=== PATIENT | male | born 1955 | race Asian ===

== ENCOUNTER 2017-02-19 07:55 | Emergency (ER) | payer MEDICAID ==
[2017-02-19 08:03] VITALS: RESP 18
--- NOTE | 2017-02-19 08:12 | EDPHY ---
H & P Stated Complaint: cough/dyspnea/ congestion Time Seen by Provider: 02/19/17 08:12 - Personal History Current Tetanus/Diphtheria Vaccine: Yes Tetanus Vaccine Date: 2011 - Medical/Surgical History Hx Asthma: No Hx Chronic Respiratory Disease: No Hx Diabetes: Yes Hx Cardiac Disease: Yes Hx Renal Disease: No Hx Cirrhosis: No Hx Alcoholism: No Hx HIV/AIDS: No Hx Splenectomy or Spleen Trauma: No Other PMH: heart surg - Social History Smoking Status: Current every day smoker Constitutional: Initial Vital Signs Temperature (C) 36.9 C 02/19/17 08:00 Heart Rate 85 02/19/17 08:00 Respiratory Rate 18 02/19/17 08:00 Blood Pressure 163/94 H 02/19/17 08:00 O2 Sat (%) 94 02/19/17 08:00 O2 Delivery Mode Room Air Allergies/Adverse Reactions: No Known Allergies Allergy (Verified 02/19/17 07:59) Home Medications: Medication Instructions Recorded Aspirin [Aspirin 81mg] 81 mg PO DAILY 11/24/11 Atorvastatin Calcium [Lipitor 40 40 mg PO DAILY 11/24/11 mg (RX)] Docusate Sodium [Colace] 100 mg PO BID PRN 11/24/11 Isosorbide Mononitrate [Imdur 30 30 mg PO DAILY 11/24/11 mg (*)] Metoprolol Tartrate [Lopressor 50 50 mg PO BID 11/24/11 mg] Fluconazole [Diflucan] 100 mg PO DAILY #10 tablet 04/10/12 Insulin Dose Unk 04/10/12 Janumet Dose Unk 04/10/12 Albuterol [Proventil Inhaler] 1 - 2 puffs IH Q4 #1 mdi 02/19/17 HYDROcodone/HOMATROPINE HYCODA 1 tsp PO Q4-6PRN PRN #120 ml 02/19/17 [Hycodan Syrup (RX)] levOFLOXACIN [levAQUIN 750 MG (RX)] 750 mg PO DAILY #10 tab 02/19/17 Medical Decision Making - Diagnostics Imaging Results: Imaging Impressions Chest X-Ray 02/19/17 08:19 Impression: Findings consistent with airways disease noted. Imaging: I viewed and interpreted images myself ED Course/Re-evaluation: CHIEF COMPLAINT: Cough and associated pain HISTORY OF PRESENT ILLNESS: This patient is a 61 year old male arriving with his complaining of pain in his right chest and persistent cough over the last five days. He reports associated pain in the right side of his chest, which he states he feels is likely muscular from prolonged coughing. He denies fever, nausea, vomiting, or other associated symptoms. He denies recent trauma or surgical history. REVIEW OF SYSTEMS: A 10 point review of systems was performed and is negative with the exception of the elements mentioned in the history of present illness. PHYSICAL EXAM: HR, BP, O2 Sat, RR. Temp noted General Appearance: Alert, well hydrated, appropriate, and non-toxic appearing. Head: Atraumatic without scalp tenderness or obvious injury Eyes: Pupils equal, round, reactive to light and accommodation, EOMI, no trauma , no injection. Ears: Clear bilaterally, no perforation, normal landmarks Nose: Atraumatic, no rhinorrhea, clear. Throat: There is no erythema or exudates, no lesions, normal tonsils, mucus membranes moist. Neck: Supple, nontender, no lymphadenopathy. Respiratory: Decreased breath sounds and rhonchi in the right base. No retractions, no distress, no wheezes, and no accessory muscle use. Cardiovascular: Regular rate and rhythm, no murmurs, rubs, or gallops. Good capillary refill all extremities. Gastrointestinal: Abdomen is soft, nontender, non-distended, no masses, no rebound, no guarding, no peritoneal signs. Musculoskeletal: Normal active ROM of all extremities, atraumatic. Neurological: Alert, appropriate, and interactive. Nonfocal neuro exam. Skin: No rashes, good turgor, no nodules on palpation. Past medical history: Diabetes, hyperlipidemia Past surgical history: Heart surgery 2012 graft Family history: Noncontributory. Social history: at bedside. DIFFERENTIAL DIAGNOSIS: The differential diagnosis for the patient's fever included but was not limited to bronchitis, pneumonia, and viral syndrome. MEDICAL DECISION MAKING: This patient is a 61 year old male presenting with a five day history of cough and associated right-sided thoracic pain. Physical exam reveals decreased breath sounds and rhonchi in the right base, but is otherwise unremarkable. Plan for labs including CBC, CHEM, Bilirubin, PTPTT, and blood cultures, and chest x-ray. Chest x-ray reveals findings consistent with bronchitis. 10:11 Reassessed patient. Discussed x-ray results. Plan to discharge home in good condition with prescriptions for Levaquin to treat infection and Hycodan syrup and Albuterol inhaler to control cough. Return precautions discussed. The patient and his are comfortable with this plan. - Data Points Laboratory Results: Laboratory Results 02/19/17 08:25 02/19/17 08:25 02/19/17 02/19/17 02/19/17 08:25 08:25 08:25 WBC 9.34 10^3/uL 10^3/uL (3.80-9.50) RBC 4.79 10^6/uL 10^6/uL (4.40-6.38) Hgb 15.0 g/dL g/dL (13.7-17.5) Hct 42.5 % % (40.0-51.0) MCV 88.7 fL fL (81.5-99.8) MCH 31.3 pg pg (27.9-34.1) MCHC 35.3 g/dL g/dL (32.4-36.7) RDW 12.1 % % (11.5-15.2) Plt Count 174 10^3/uL 10^3/uL (150-400) MPV 9.8 fL fL (8.7-11.7) Neut % (Auto) 70.8 % % (39.3-74.2) Lymph % (Auto) 19.9 % % (15.0-45.0) [place] % (Auto) 6.4 % % (4.5-13.0) Eos % (Auto) 2.4 % % (0.6-7.6) Baso % (Auto) 0.3 % % (0.3-1.7) Nucleat RBC Rel Count 0.0 % % (0.0-0.2) Absolute Neuts (auto) 6.61 10^3/uL H 10^3/uL (1.70-6.50) Absolute Lymphs (auto) 1.86 10^3/uL 10^3/uL (1.00-3.00) Absolute Monos (auto) 0.60 10^3/uL 10^3/uL (0.30-0.80) Absolute Eos (auto) 0.22 10^3/uL 10^3/uL (0.03-0.40) Absolute Basos (auto) 0.03 10^3/uL 10^3/uL (0.02-0.10) Absolute Nucleated RBC 0.00 10^3/uL 10^3/uL (0-0.01) Immature Gran % 0.2 % % (0.0-1.1) Immature Gran # 0.02 10^3/uL 10^3/uL (0.00-0.10) PT 12.0 SEC SEC (12.0-15.0) INR 0.90 (0.83-1.16) APTT 26.0 SEC SEC (23.0-38.0) VBG Lactic Acid Sodium 133 mEq/L L mEq/L (134-144) Potassium 4.4 mEq/L mEq/L (3.5-5.2) Chloride 102 mEq/L mEq/L (97-110) Carbon Dioxide 20 mEq/l L mEq/l (22-31) Anion Gap 11 mEq/L mEq/L (8-16) BUN 15 mg/dL mg/dL (7-23) Creatinine 1.0 mg/dL mg/dL (0.7-1.3) Estimated GFR > 60 Glucose 322 mg/dL H mg/dL (70-100) Calcium 9.0 mg/dL mg/dL (8.5-10.4) Total Bilirubin 0.7 mg/dL mg/dL (0.1-1.4) 02/19/17 08:25 WBC RBC Hgb Hct MCV MCH MCHC RDW Plt Count MPV Neut % (Auto) Lymph % (Auto) [place] % (Auto) Eos % (Auto) Baso % (Auto) Nucleat RBC Rel Count Absolute Neuts (auto) Absolute Lymphs (auto) Absolute Monos (auto) Absolute Eos (auto) Absolute Basos (auto) Absolute Nucleated RBC Immature Gran % Immature Gran # PT INR APTT VBG Lactic Acid 1.4 mmol/L mmol/L (0.7-2.1) Sodium Potassium Chloride Carbon Dioxide Anion Gap BUN Creatinine Estimated GFR Glucose Calcium Total Bilirubin Departure - Departure Disposition: Home, Routine, Self-Care Clinical Impression: Acute bronchitis Qualifiers: Bronchitis organism: other organism Qualified Code(s): J20.8 - Acute bronchitis due to other specified organisms Condition: Good Instructions: Acute Bronchitis (ED) Additional Instructions: 1. Take your Levaquin as prescribed for the next 10 days. It is important that you finish the entire course of antibiotics. 2. Take your Hycodan syrup and use your albuterol inhaler as prescribed as needed for cough. 3. Follow up with your primary care physician for symptoms unresolved in the next week. 4. Return to the Emergency Department for difficulty breathing, fever, chills, nausea, or other worsening of condition. Referrals: NONE *PRIMARY CARE P,. [Primary Care Provider] - As per Instructions Blair Lay MD [Medical Doctor] - As per Instructions Prescriptions: Albuterol [Proventil Inhaler] 1 - 2 puffs IH Q4 #1 mdi HYDROcodone/HOMATROPINE HYCODA [Hycodan Syrup (RX)] 1 tsp PO Q4-6PRN PRN #120 ml PRN Reason: Cough, Moderate levOFLOXACIN [levAQUIN 750 MG (RX)] 750 mg PO DAILY #10 tab Report Scribed for: Deon Muniz Report Scribed by: Stephany Kaur Date of Report: 02/19/17 Time of Report: 10:07
[2017-02-19 08:40] LABS: % IMMATURE GRANULYOCYTES 0.2 % (0.0-1.1); ABSOLUTE IMMATURE GRANULOCYTES 0.02 10^3/uL (0.00-0.10); ADD DIFF? NO; ADD MORPH? NO; ADD SCAN? NO; ATYPICAL LYMPHOCYTE FLAG 20 (0-99); FRAGMENT RBC FLAG 0 (0-99); HEMATOCRIT 42.5 % (40.0-51.0); LEFT SHIFT FLG 0 (0-99); LIPEMIA HEMOLYSIS FLAG 90 (0-99); MEAN CELL HEMOGLOBIN 31.3 pg (27.9-34.1); MEAN CELL HEMOGLOBIN CONCENTR. 35.3 g/dL (32.4-36.7); MEAN CELL VOLUME 88.7 fL (81.5-99.8); MEAN PLATELET VOLUME 9.8 fL (8.7-11.7); PLATELET CLUMPS FLAG 0 (0-99); PLATELET COUNT 174 10^3/uL (150-400); RED BLOOD CELL COUNT 4.79 10^6/uL (4.40-6.38); RED CELL DISTRIBUTION WIDTH 12.1 % (11.5-15.2)
[2017-02-19 08:49] LABS: INR 0.9 (0.83-1.16)
[2017-02-19 08:52] LABS: BILIRUBIN,TOTAL 0.7 mg/dL (0.1-1.4); CARBON DIOXIDE 20 mEq/l (22-31); CHLORIDE 102 mEq/L (97-110); GLOMERULAR FILTRATION RATE > 60; GLUCOSE 322 mg/dL (70-100); SODIUM 133 mEq/L (134-144)
[2017-02-19 09:08] LABS: ANION GAP 11 mEq/L (8-16); POTASSIUM 4.4 mEq/L (3.5-5.2)
[2017-02-19 10:40] VITALS: BP 161/92; PULSE 93; TEMP 98.1; O2SAT 95
== END 2017-02-19 10:39 | disposition home or self-care (01) ==
DX: J20.9 Acute bronchitis, unspecified (principal); F17.200 Nicotine dependence, unspecified, uncomplicated; E11.9 Type 2 diabetes mellitus without complications; Z79.82 Long term (current) use of aspirin

== ENCOUNTER 2018-02-06 21:46 | Inpatient (IN) | payer MEDICAID ==
[2018-02-06] MEDS ORDERED: NS 1,000 ML IV ONE (22:42)
[2018-02-06] MEDS ORDERED: ONDANSETRON 4 MG/2 ML VIAL ONE (22:45)
[2018-02-06] MEDS ORDERED: ONDANSETRON 4 MG/2 ML VIAL IVP ONE (22:48)
[2018-02-06 22:49] LABS: PLATELET COUNT 200 10^3/uL (150-400)
--- NOTE | 2018-02-06 22:53 | EDPHY ---
H & P Stated Complaint: N/V, abd pain x2-3 days Time Seen by Provider: 02/06/18 22:38 HPI/ROS: HPI The patient presents with abdominal pain, nausea and vomiting for the last 2 days. Symptoms began after eating a [place] samosa anything could of been bad. He developed nausea and vomiting which has been constant, waking him from sleep , clear fluid for the most part. He has been unable to take any mouth. He not diarrhea, last bowel movement was 2 days ago. He also has abdominal pain which is sort around his umbilicus his be and intermittent.. REVIEW OF SYSTEMS Constitutional: No fever, no chills. Eyes: No discharge. ENT: No sore throat. Cardiovascular: No chest pain, no palpitations. Respiratory: No cough, no shortness of breath. Gastrointestinal: See HPI Genitourinary: No hematuria. Musculoskeletal: No back pain. Skin: No rashes. Neurological: No headache. PMHx: Type 2 diabetes, history of CAD Soc Hx: Housed with his PHYSICAL General Appearance: Alert, no distress Eyes: Pupils equal and round no pallor or injection ENT, Mouth: Mucous membranes moist Respiratory: There are no retractions, lungs are clear to auscultation Cardiovascular: Regular rate and rhythm Gastrointestinal: Abdomen is soft and tender in the periumbilical region wooden rebound or guarding, no masses, bowel sounds normal Neurological: A&O, moves all extremities Skin: Warm and dry, no rashes Musculoskeletal: Neck is supple non tender Extremities: symmetrical, full range of motion Psychiatric: Patient is oriented X 3, there is no agitation Source: Patient Exam Limitations: No limitations - Personal History Current Tetanus/Diphtheria Vaccine: Yes Tetanus Vaccine Date: 2011 - Medical/Surgical History Hx Asthma: No Hx Chronic Respiratory Disease: No Hx Diabetes: Yes Hx Cardiac Disease: Yes Hx Renal Disease: No Hx Cirrhosis: No Hx Alcoholism: No Hx HIV/AIDS: No Hx Splenectomy or Spleen Trauma: No Other PMH: heart surg, cataract sx. DM - Social History Smoking Status: Current every day smoker Constitutional: Initial Vital Signs Temperature (C) 36.7 C 02/06/18 21:47 Heart Rate 109 H 02/06/18 21:47 Respiratory Rate 18 02/06/18 21:47 Blood Pressure 134/99 H 02/06/18 21:47 O2 Sat (%) 94 02/06/18 21:47 O2 Delivery Mode Room Air Allergies/Adverse Reactions: No Known Allergies Allergy (Verified 02/19/17 07:59) Home Medications: Medication Instructions Recorded Losartan Potassium 02/06/18 SIMVASTATIN 02/06/18 novoLOG 02/06/18 Medical Decision Making - Diagnostics Imaging Results: Imaging Impressions Abdomen CT 02/06/18 22:51 Impression: 1. Normal appendix. No bowel obstruction. 2. Possible evidence of a duodenal bulbar ulcer. 3. Subtle right perinephric edema, without renal obstruction. Any evidence for a urinary tract infection? Results called and discussed with Shanta Calhoun MD, at 02/06/2018 23:48 General information for patients regarding this examination can be found at [email or web address]. If you have questions or comments about this report, please contact me at [phone] (hospital) or [phone] (cell). Imaging: Discussed imaging studies w/ call worker Radiologist Differential Diagnosis: 62-year-old male with CAD, type 2 diabetes presents from home with 2 days of periumbilical abdominal pain associated with nausea and vomiting, unable to take p.o.. On exam, he is tachycardic, actively heaving, and has mild abdominal tenderness. Differential diagnosis includes early appendicitis, viral gastroenteritis, toxin mediated enterocolitis, gastritis, ureterolithiasis. In the department, patient received IV fluids, Zofran. Basic labs were checked. He was found to be hyponatremic with a sodium of 122. CT scan of his abdomen demonstrated possible duodenal bulb ulceration. He does not have any hematemesis or melena. Because of his low sodium, likely related to dehydration I will admit him for IV fluids. I have discussed this plan with him and his . I have consulted with the hospitalist service station helper Dr. Moreno will admit the patient. - Data Points Laboratory Results: Laboratory Results 02/06/18 22:25 02/06/18 22:25 02/06/18 02/06/18 22:25 22:25 WBC 9.96 10^3/uL H 10^3/uL (3.80-9.50) RBC 5.92 10^6/uL 10^6/uL (4.40-6.38) Hgb 17.7 g/dL H g/dL (13.7-17.5) Hct 49.8 % % (40.0-51.0) MCV 84.1 fL fL (81.5-99.8) MCH 29.9 pg pg (27.9-34.1) MCHC 35.5 g/dL g/dL (32.4-36.7) RDW 11.6 % % (11.5-15.2) Plt Count 200 10^3/uL 10^3/uL (150-400) MPV 9.1 fL fL (8.7-11.7) Neut % (Auto) 82.3 % H % (39.3-74.2) Lymph % (Auto) 13.5 % L % (15.0-45.0) [place] % (Auto) 3.6 % L % (4.5-13.0) Eos % (Auto) 0.2 % L % (0.6-7.6) Baso % (Auto) 0.2 % L % (0.3-1.7) Nucleat RBC Rel Count 0.0 % % (0.0-0.2) Absolute Neuts (auto) 8.20 10^3/uL H 10^3/uL (1.70-6.50) Absolute Lymphs (auto) 1.34 10^3/uL 10^3/uL (1.00-3.00) Absolute Monos (auto) 0.36 10^3/uL 10^3/uL (0.30-0.80) Absolute Eos (auto) 0.02 10^3/uL L 10^3/uL (0.03-0.40) Absolute Basos (auto) 0.02 10^3/uL 10^3/uL (0.02-0.10) Absolute Nucleated RBC 0.00 10^3/uL 10^3/uL (0-0.01) Immature Gran % 0.2 % % (0.0-1.1) Immature Gran # 0.02 10^3/uL 10^3/uL (0.00-0.10) Sodium 125 mEq/L L mEq/L (135-145) Potassium 4.0 mEq/L mEq/L (3.3-5.0) Chloride 88 mEq/L L mEq/L (97-110) Carbon Dioxide 24 mEq/l mEq/l (22-31) Anion Gap 13 mEq/L mEq/L (8-16) BUN 14 mg/dL mg/dL (7-23) Creatinine 0.9 mg/dL mg/dL (0.7-1.3) Estimated GFR > 60 Glucose 232 mg/dL H mg/dL (70-100) Calcium 9.3 mg/dL mg/dL (8.5-10.4) Total Bilirubin 1.9 mg/dL H mg/dL (0.1-1.4) Conjugated Bilirubin 0.4 mg/dL mg/dL (0.0-0.5) Unconjugated Bilirubin 1.5 mg/dL H mg/dL (0.0-1.1) AST 23 IU/L IU/L (17-59) ALT 35 IU/L IU/L (21-72) Alkaline Phosphatase 86 IU/L IU/L (38-126) Total Protein 7.5 g/dL g/dL (6.3-8.2) Albumin 4.3 g/dL g/dL (3.5-5.0) Lipase 52 IU/L IU/L (23-300) Medications Given: Sodium Chloride (Ns) 1,000 mls @ 100 mls/hr IV CONT MOLLY Stop: 08/06/18 00:29 Last Admin: 02/07/18 03:51 Dose: 1,000 mls Discontinued Medications Sodium Chloride (Ns) 1,000 mls @ 0 mls/hr IV EDNOW ONE; Wide Open PRN Reason: Protocol Stop: 02/06/18 22:43 Last Admin: 02/06/18 22:48 Dose: 1,000 mls Ondansetron HCl (Zofran) 4 mg IVP EDNOW ONE Stop: 02/06/18 22:49 Last Admin: 02/06/18 22:48 Dose: 4 mg Departure - Departure Disposition: [facility] Clinical Impression: Hyponatremia, Vomiting, Abdominal pain Condition: Fair
[2018-02-06] MEDS ORDERED: IOPAMIDOL (ISOVUE-300) 100 ML BTL ONE (23:13)
[2018-02-07] MEDS ORDERED: NS 1,000 ML IV SCH ×3 (00:30→11:30)
[2018-02-07] MEDS ORDERED: ACETAMINOPHEN 650 MG SUPP PR PRN (01:47)
[2018-02-07] MEDS ORDERED: ACETAMINOPHEN 325 MG TAB PO PRN (01:47)
[2018-02-07] MEDS ORDERED: ONDANSETRON 4 MG/2 ML VIAL IVP PRN (01:47)
[2018-02-07] MEDS ORDERED: D50W 25 GM/50 ML VIAL IVP PRN (01:51)
--- NOTE | 2018-02-07 08:04 | GHP ---
[f rep st] HISTORY AND PHYSICAL DATE OF ADMISSION: 02/07/2018 PRIMARY CARE PHYSICIAN: Unlisted. ELECTRICIAN MANAGER: Rudolph Cruz MD. SOURCE: The patient provides history, appears reliable. EMR was reviewed and case discussed with the ED provider. CHIEF COMPLAINT: Abdominal pain, nausea and vomiting. HISTORY OF PRESENT ILLNESS: This is a very pleasant 62-year-old gentleman with past medical history significant for CAD status post a CABG, diabetes type 2 uncontrolled, HTN, HLD, who presents to the emergency department today with GI symptoms acutely worsened for the last 2 days. The patient also developed some nausea and vomiting as well. The patient is without any complaints of fevers or chills. He does note he has been experiencing intermittent epigastric abdominal pain that is usually worse a short time after some meals. The patient states in the last 2 days he developed nausea and had little oral intake. He denies any hematemesis. He has not had any diarrhea. No melena or hematochezia is reported. The patient denies any known sick contacts, no recent travel. The patient does report that he has noticed an increased amount of acid reflux, and he is not currently on any PPIs or H2 blockers. The patient without any previous history of regular NSAID use. He has not had a colonoscopy or EGD in the past. REVIEW OF SYSTEMS: GENERAL: Negative for fevers or chills. SKIN: No rash or sores. ENT: The patient denies any sore throat or rhinorrhea. CV: No chest pain or palpitations. RESPIRATORY: No shortness of breath or cough. GI: As per HPI. : No dysuria or hematuria. MUSCULOSKELETAL: No joint pain or myalgias. NEURO: No headache, numbness, tingling, or focal deficits. The remainder of review of systems is negative except as noted above. ALLERGIES: No known drug allergies. HOME MEDICATIONS: Simvastatin, NovoLog, and losartan. PAST MEDICAL HISTORY: Diabetes type 2, HTN, HLD, CAD status post CABG. PAST SURGICAL HISTORY: Significant for CABG and bilateral cataract extraction with lens placement. FAMILY HISTORY: The patient denies any irritable bowel disease, peptic ulcer disease or other GI issues. No coronary artery disease. Mother and father did have diabetes type 2. SOCIAL HISTORY: The patient is , lives with his . He smokes occasional cigarette, but nothing on a daily basis. He also has an occasional alcoholic beverage, also not on a daily basis. Denies any illicit drug use or marijuana use. CODE STATUS: FULL. PHYSICAL EXAMINATION: VITAL SIGNS: Upon arrival to the emergency department, blood pressure was 134/99, heart rate 109, respiratory rate 18, O2 saturation 94 % in room air with a temperature of 36.7. Current vital signs available: Blood pressure is 149/89, heart rate is 93, respiratory rate 18, O2 saturation 92% in room air, temperature 36.9. GENERAL: No acute distress. Very pleasant adult gentleman who is lying quietly in bed. HEAD: Normocephalic, atraumatic. EYES: Extraocular muscles are grossly intact. Lens reflex appreciated bilaterally. ENT: Mucous membranes appear moist. The patient is with very minimal oropharyngeal erythema but no exudates. NECK: Supple. Trachea is midline. CV: Patient with a regular rate and rhythm. He has a 2/6 systolic murmur over the left upper sternal border. No chest wall tenderness to palpation. No rubs or gallops otherwise. RESPIRATORY: Lungs are clear to auscultation bilaterally. No wheezes, rales, or rhonchi. Unlabored breathing. ABDOMEN: Positive bowel sounds. Minimal tenderness to palpation in the epigastric region. No rebound, guarding, or masses appreciated. : No suprapubic tenderness to palpation. No Colorado catheter in place. EXTREMITIES: No cyanosis, clubbing, or edema appreciated. The patient's strength is grossly normal upper and lower extremities bilaterally and symmetric. NEURO: Grossly nonfocal. No facial drooping. Moves all extremities. Sits up independently. PSYCH: Thought process, content and questions are all appropriate. LABORATORY STUDIES: WBCs 9.96, H and H 17.7 and 49.8, MCV of 84.1, platelet count 200, neutrophil percent 82.3, but no bands. Sodium initially was 125, potassium 4.0, chloride 88, CO2 is 24, anion gap 13, BUN is 14, creatinine 0.9, GFR greater than 60, glucose 232, calcium is 9.3, total bilirubin is 1.9, unconjugated bilirubin 1.5, ALT is 35, AST is 23, alk phos is 86, total protein 7.5, albumin 4.3, lipase is 52. Current BMP showing sodium is 128, potassium is 4.4, chloride is 94, CO2 is 24, anion gap of 10, BUN 13, creatinine 0.8, GFR greater than 60, glucose is 268, calcium 8.3, phosphorus 3.4, magnesium 1.5, total bilirubin is 1.5. UA specific gravity 1.026 with a pH 7.0, 1+ ketones, 2+ blood, 1+ glucose, otherwise negative. CT abdomen and pelvis: Image report reviewed, showing normal appendix, no bowel obstruction. Possible evidence of a duodenal bulb ulcer. Subtle right perinephric edema without renal obstruction. No biliary dilation. No ascites or evidence of bowel obstruction. ASSESSMENT AND PLAN: A very pleasant 62-year-old gentleman with past medical history significant for diabetes, hypertension, hyperlipidemia, coronary artery disease status post coronary artery bypass graft, who presents to the emergency department with complaints of several-day history of abdominal pain and development of intractable nausea and vomiting. 1. Abdominal pain. I suspect this is secondary to a potential ulcer in the duodenal bulb as noted on CT, there is suspicion for this. The patient has been noting some increasing acid. He also has postprandial abdominal pain. He has never had an EGD. He is not taking any NSAIDs. He will receive a bolus dose of Protonix IV and made n.p.o. Further discussion with GI for consideration of inpatient versus outpatient management. Patient without any reported history of melena or hematochezia, and H and H are stable. The patient 's abdominal pain is currently resolved. He has been n.p.o. since early this morning. He is amenable to plan and further discussion with GI. 2. The patient also had some noted potential perinephric stranding on the right side without evidence of obstruction. His UA is completely normal. He has no CVA tenderness on exam. At this point, we will hold off on any antibiotics, the patient is afebrile and he has no leukocytosis. 3. Hyponatremia, likely secondary to hypovolemia and dehydration. It has improved slightly with IV fluid supplementation. We will continue to trend and monitor. The patient is no longer having any emesis. 4. Diabetes type 2, uncontrolled. We will place the patient on a standard insulin sliding scale while he is n.p.o. 5. Hyperbilirubinemia. This could be secondary to dehydration or due to biliary dyskinesia; however, the patient is without any right upper quadrant pain with negative Holliday's sign. No evidence of cholecystitis on CT and has been downtrending with IV fluids, so we will continue to monitor. 6. Nausea and vomiting, currently resolved status post antiemetics in the emergency department with resolution of those symptoms. 7. Fluid, electrolyte and nutrition. Continue with IV fluids as noted above, status post bolus in the emergency department. Electrolyte monitoring and replacement p.r.n. 8. Diet will be n.p.o. pending reassessment. 9. Prophylaxis. SCDs, holding anticoagulation pending further plan and reassessment in the morning. CODE STATUS: Full. DISPOSITION: The patient is admitted to observation status at this time on the medical floor. /[id number]/MODL MTDD
[2018-02-07] MEDS ORDERED: ENOXAPARIN 40 MG/0.4 ML SYR SC SCH (09:00)
[2018-02-07] MEDS: PANTOPRAZOLE SODIUM 40 MG VIAL IVP SCH ×3 (09:18→20:53)
[2018-02-07] MEDS: INSULIN LISPRO 100 UNIT/ML SC SCH ×4 (09:18→21:15)
--- NOTE | 2018-02-07 12:38 | ASMTCASEMG ---
Living Arrangements What is your living Answers: With Spouse arrangement? Who do you live with? Type Of Residence What kind of residence do Answers: Apartment you live in? Discharge Plan Comments Coordination Status Comments Notes: Pt is a 62 y/o man admitted for hyponatremia, dehydration and vomiting. Pt will most likely d/c independent when medically stable. No therapies ordered at this time. CM available for changes. Plan: Independent Date Signed: 02/07/2018 12:37 PM Electronically Signed By:IGOR Nunn
[2018-02-07] MEDS: NEPAFENAC RTEYE SCH (20:54)
[2018-02-07] MEDS: Difluprednate [Durezol] 1 DROP RTEYE SCH (20:55)
[2018-02-07] MEDS ORDERED: MOXIFLOXACIN HCL RTEYE SCH (21:00)
[2018-02-07] MEDS ORDERED: ATORVASTATIN CALCIUM 10 MG TAB PO SCH (21:00)
[2018-02-08 07:51] VITALS: BP 129/78
[2018-02-08] MEDS: INSULIN LISPRO 100 UNIT/ML SC SCH ×2 (10:09→12:01)
[2018-02-08] MEDS: PANTOPRAZOLE SODIUM 40 MG VIAL IVP SCH (10:10)
[2018-02-08] MEDS: NEPAFENAC RTEYE SCH (11:49)
[2018-02-08] MEDS: Difluprednate [Durezol] 1 DROP RTEYE SCH (11:50)
--- NOTE | 2018-02-08 12:15 | PDMN ---
Medical Necessity Medical necessity: est los>2mn for abd pain, N/V, w/possible ulcer of duodenal bulb, and hyponatremia; admit for IV PPI, NPO, IVF; comorbid DM, HTN , HLD, CAD s/p CABG; per order and H&P 02/07/18
--- NOTE | 2018-02-08 16:23 | GDS ---
[f rep st] DISCHARGE SUMMARY DISCHARGE DIAGNOSES: Include: 1. Suspected food-borne gastroenteritis. 2. Hypovolemic hyponatremia. 3. Acute kidney injury, secondary to hypovolemia. 4. Dyspepsia. HISTORY OF PRESENT ILLNESS: A 62-year-old male who presents after eating a meal that did not settle well with him. He developed nausea, vomiting, and diarrhea, presented secondary to weakness and abdo lita discomfort. For details of patient's initial presentation, please see the history and physical dated 02/06/2018. HOSPITAL COURSE: 1. Hypovolemic hyponatremia. Patient received aggressive fluid resuscitation with normalization of his serum sodium from 120 to 135. 2. Acute gastroenteritis. Pathogen not identified, but potentially related to food that he consumed in the outpatient setting. Patient did not develop bloody diarrhea or any testable diarrhea during his hospital stay. He received supportive care, fluid resuscitation, and had resolution of his abdom inal discomfort with titration from clear liquid diet to solids prior to disposition and was symptom free on the day of discharge. MEDICATIONS AT TIME OF TRANSFER: Please reference the medication reconciliation printed on 8. PENDING STUDIES: At time of this dictation are none. DISCHARGE INSTRUCTIONS/FOLLOWUP APPOINTMENTS: Include with his PCP. Has been instructed to resume h is home medications without change. He can follow his PCPs office in the next 2 to 4 weeks for post disposition followup. /[id number]/MODL
== END 2018-02-08 12:10 | disposition home or self-care (01) | DRG 249 ==
LOC: OBSVTOIN 02-07 00:20 → F3E 02-07 01:25
PROVIDERS: ADMIT Family Medicine; ATTEND Family Medicine
DX: A05.9 Bacterial foodborne intoxication, unspecified (principal); E87.1 Hypo-osmolality and hyponatremia; N17.9 Acute kidney failure, unspecified; E11.65 Type 2 diabetes mellitus with hyperglycemia; I25.10 Atherosclerotic heart disease of native coronary artery without angina pectoris; I10 Essential (primary) hypertension; E78.5 Hyperlipidemia, unspecified; Z95.1 Presence of aortocoronary bypass graft; F17.210 Nicotine dependence, cigarettes, uncomplicated
CPT/HCPCS: 96374; J1815; J2405; Q9967

== ENCOUNTER 2018-10-23 14:10 | Emergency (ER) | payer MEDICAID ==
[2018-10-23] MEDS ORDERED: ONDANSETRON 4 MG/2 ML VIAL IVP ONE (16:02)
[2018-10-23] MEDS ORDERED: NS 500 ML IV ONE (16:02)
--- NOTE | 2018-10-23 16:02 | EDPHY ---
H & P Time Seen by Provider: 10/23/18 15:54 HPI/ROS: CHIEF COMPLAINT: Abdominal discomfort, nausea HISTORY OF PRESENT ILLNESS: Patient is a 63-year-old male with a history of type 2 diabetes, hypertension, hyperlipidemia and coronary artery disease who presents emergency department with abdominal discomfort for the past 3 days. He describes a generalized abdominal discomfort. It is mild. He feels a "bubbling sensation" in his abdomen. He has episodes of nausea but is not actually vomited. He has no diarrhea. No dysuria frequency. No fevers or chills. REVIEW OF SYSTEMS: 10 systems were reveiwed and are negative with the exception of the elements mentioned in the history of present illness. Past Medical/Surgical History: Includes diabetes type 2, hypertension, hyperlipidemia, coronary artery disease Past surgical history: CABG, bilateral cataract Social history: Patient does not smoke Smoking Status: Current every day smoker Physical Exam: 36.5, 192/115, 94, 18, 94% on room air GENERAL: Well-appearing, in no acute distress, alert. HEENT: Eyes normal to inspection, normal pharynx, no signs of dehydration. NECK: Normal, supple. RESPIRATORY: Clear to auscultation bilaterally, no rales, rhonchi or wheezing. CVS: Regular rate and rhythm, no rubs, murmurs, or gallops. ABDOMEN: Soft, nontender, nondistended, no organomegaly. Benign BACK: Normal to inspection, no CVA tenderness. SKIN: Normal color, no rash, warm, dry. No pallor. EXTREMITIES: No pedal edema, no calf tenderness, no Homans sign or cords, no joint swelling. NEURO/PSYCH: Alert and oriented, normal mood and affect, normal motor sensory exam. Constitutional: Initial Vital Signs Temperature (C) 36.5 C 10/23/18 14:31 Heart Rate 94 10/23/18 14:31 Respiratory Rate 18 10/23/18 14:31 Blood Pressure 192/115 H 10/23/18 14:31 O2 Sat (%) 94 10/23/18 14:31 O2 Delivery Mode Room Air Allergies/Adverse Reactions: No Known Allergies Allergy (Verified 02/19/17 07:59) Home Medications: Medication Instructions Recorded Insulin Aspart [Novolog Flexpen] 12 - 15 unit SQ TIDMEAL 02/06/18 Losartan Potassium [Cozaar 50 mg 100 mg PO DAILY 02/06/18 (*)] Simvastatin [Zocor] 20 mg PO HS 02/06/18 Difluprednate [Durezol] 1 drop RTEYE BID 02/07/18 Nepafenac [Ilevro] 1 drop RTEYE BID 02/07/18 Pantoprazole Sodium 40 mg PO DAILY PRN #30 tablet. 02/08/18 Ondansetron Odt [Zofran Odt 4 mg 4 mg PO Q4PRN PRN #7 tab 10/23/18 (*)] Medical Decision Making ED Course/Re-evaluation: In the emergency department we discussed possible etiologies with the patient. Answered all his questions. This time I do not feel he needs imaging. He has a benign abdomen on exam. Patient had an IV placed. Patient was given normal saline 5 mL IV for hydration. He is given Zofran 4 mg IV. Laboratory studies were ordered. Patient's sodium was low 131. I compared this with his previous sodium which were similar. Patient also had elevated T bilirubin of 1.9. This is been elevated previously. Lipase is 168. White count is minimally elevated at 10.7. Hematocrit mildly elevated at 51.8. Platelets are 181. I rechecked the patient. He was feeling much better. His abdomen is soft, nontender nondistended. I discussed possible etiologies with the patient. I answered all his questions. Differential Diagnosis: My differential includes but is not limited to small-bowel obstruction, perforation, mesenteric ischemia, volvulus, intussusception, ileus, pancreatitis , cholecystitis - Data Points Laboratory Results: Laboratory Results 10/23/18 16:00 10/23/18 16:00 10/23/18 10/23/18 10/23/18 16:00 16:00 16:00 WBC 10.71 10^3/uL H 10^3/uL (3.80-9.50) RBC 5.71 10^6/uL 10^6/uL (4.40-6.38) Hgb 17.9 g/dL H g/dL (13.7-17.5) Hct 51.8 % H % (40.0-51.0) MCV 90.7 fL fL (81.5-99.8) MCH 31.3 pg pg (27.9-34.1) MCHC 34.6 g/dL g/dL (32.4-36.7) RDW 11.8 % % (11.5-15.2) Plt Count 181 10^3/uL 10^3/uL (150-400) MPV 9.0 fL fL (8.7-11.7) Neut % (Auto) 82.8 % H % (39.3-74.2) Lymph % (Auto) 12.6 % L % (15.0-45.0) [place] % (Auto) 4.1 % L % (4.5-13.0) Eos % (Auto) 0.0 % L % (0.6-7.6) Baso % (Auto) 0.3 % % (0.3-1.7) Nucleat RBC Rel Count 0.0 % % (0.0-0.2) Absolute Neuts (auto) 8.87 10^3/uL H 10^3/uL (1.70-6.50) Absolute Lymphs (auto) 1.35 10^3/uL 10^3/uL (1.00-3.00) Absolute Monos (auto) 0.44 10^3/uL 10^3/uL (0.30-0.80) Absolute Eos (auto) 0.00 10^3/uL L 10^3/uL (0.03-0.40) Absolute Basos (auto) 0.03 10^3/uL 10^3/uL (0.02-0.10) Absolute Nucleated RBC 0.00 10^3/uL 10^3/uL (0-0.01) Immature Gran % 0.2 % % (0.0-1.1) Immature Gran # 0.02 10^3/uL 10^3/uL (0.00-0.10) VBG Lactic Acid 1.5 mmol/L mmol/L (0.7-2.1) Sodium 131 mEq/L L mEq/L (135-145) Potassium 4.1 mEq/L mEq/L (3.5-5.2) Chloride 97 mEq/L mEq/L (97-110) Carbon Dioxide 24 mEq/l mEq/l (22-31) Anion Gap 10 mEq/L mEq/L (6-14) BUN 20 mg/dL mg/dL (7-23) Creatinine 0.9 mg/dL mg/dL (0.7-1.3) Estimated GFR > 60 Glucose 272 mg/dL H mg/dL (70-100) Calcium 9.0 mg/dL mg/dL (8.5-10.4) Total Bilirubin 1.9 mg/dL H mg/dL (0.1-1.4) Conjugated Bilirubin 0.4 mg/dL mg/dL (0.0-0.5) Unconjugated Bilirubin 1.5 mg/dL H mg/dL (0.0-1.1) AST 25 IU/L IU/L (17-59) ALT 35 IU/L IU/L (21-72) Alkaline Phosphatase 77 IU/L IU/L (38-126) Total Protein 7.5 g/dL g/dL (6.3-8.2) Albumin 4.5 g/dL g/dL (3.5-5.0) Lipase 168 IU/L IU/L (23-300) Medications Given: Discontinued Medications Sodium Chloride (Ns) 500 mls @ 0 mls/hr IV EDNOW ONE; Wide Open PRN Reason: Protocol Stop: 10/23/18 16:03 Last Admin: 10/23/18 16:35 Dose: 500 mls Ondansetron HCl (Zofran) 4 mg IVP EDNOW ONE Stop: 10/23/18 16:03 Last Admin: 10/23/18 16:36 Dose: 4 mg Departure - Departure Disposition: Home, Routine, Self-Care Clinical Impression: Abdominal pain Qualifiers: Abdominal location: generalized Qualified Code(s): R10.84 - Generalized abdominal pain Condition: Good Instructions: Acute Abdominal Pain (ED) Additional Instructions: Return with increasing abdominal pain, recurrent vomiting or any other concerns. Take the prescription given for nausea. Follow up with primary care physician. You been given on-call physicians phone number. Call tomorrow to make the first available appointment. Referrals: Alice Bush MD [Medical Doctor] - 2-3 days without fail Prescriptions: Ondansetron Odt [Zofran Odt 4 mg (*)] 4 mg PO Q4PRN PRN #7 tab PRN Reason: For Nausea & Vomiting
[2018-10-23 16:09] LABS: PLATELET COUNT 181 10^3/uL (150-400)
[2018-10-23 17:37] VITALS: BP 171/100
== END 2018-10-23 17:37 | disposition home or self-care (01) ==
DX: R10.84 Generalized abdominal pain (principal); I10 Essential (primary) hypertension; I25.10 Atherosclerotic heart disease of native coronary artery without angina pectoris; E78.5 Hyperlipidemia, unspecified; E11.9 Type 2 diabetes mellitus without complications; Z95.1 Presence of aortocoronary bypass graft
CPT/HCPCS: 96374; J2405